=== PATIENT | female | born 1995 | race Caucasian/White ===

== ENCOUNTER 2019-08-29 21:38 | Emergency (ER) | payer MEDICARE, MEDICAID ==
[2019-08-29] MEDS ORDERED: Albuterol/Ipratropium 3.0-0.5 MG/3 ML Neb Soln NEB ONE (22:38)
[2019-08-29] MEDS ORDERED: methylPREDNISolone Sodium Succinate 125 MG/2 ML SDV IM ONE (22:38)
--- NOTE | 2019-08-29 22:43 | EDM.PDOC ---
ED HPI GENERAL MEDICAL PROBLEM - General Stated Complaint: CHEST PAIN Time Seen by Provider: 08/29/19 22:30 Source of Information: Reports: Patient History Limitations: Reports: No Limitations - History of Present Illness INITIAL COMMENTS - FREE TEXT/NARRATIVE: Patient is a 24 YO [facility]F [facility] who presented to the ED because of increasing cough,dyspnea and pleuritic hest pain. she is currently being treated for asthma exacerbation with oral steroids,nebs,and antibiotics. there is no associated fever or chills. mid cheat and mid back Pain Score (Numeric/FACES): 5 - Related Data Allergies Allergy/AdvReac Type Severity Reaction Status Date / Time Penicillins Allergy Hives Verified 06/02/16 22:16 Home Meds: Home Meds Albuterol [Ventolin HFA] 2 puff QID PRN 06/03/16 [History] Azelastine [Astelin Nasal Soln] 1 inhalation ANA BID 06/03/16 [History] Citalopram Hydrobromide [Celexa] 20 mg PO DAILY 06/03/16 [History] Fluticasone/Salmeterol [Advair Diskus 500-50] 1 puff BID 06/03/16 [History] Montelukast [Singulair] 10 mg PO DAILY 06/03/16 [History] busPIRone [Buspar] 5 mg BID 06/03/16 [History] l-Norgest/E.estradion-E.estrad [Daysee 0.15-0.03-0.01 mg Tab] 1 each PO ASDIRECTED 06/03/16 [History] Past Medical History Cardiovascular History: Reports: Other (See Below) Other Cardiovascular History: PFO Respiratory History: Reports: Asthma, Bronchitis, Recurrent Psychiatric History: Reports: Anxiety Endocrine/Metabolic History: Reports: Obesity/BMI 30+ - Infectious Disease History Infectious Disease History: Reports: Chicken Pox - Past Surgical History HEENT Surgical History: Reports: Myringotomy w Tube(s), Tonsillectomy ED ROS GENERAL - Review of Systems Review Of Systems: See Below Constitutional: Reports: No Symptoms HEENT: Reports: No Symptoms Respiratory: Reports: Shortness of Breath, Wheezing, Pleuritic Chest Pain Cardiovascular: Reports: No Symptoms, Chest Pain Endocrine: Reports: No Symptoms GI/Abdominal: Reports: No Symptoms : Reports: No Symptoms Musculoskeletal: Reports: No Symptoms Skin: Reports: No Symptoms Neurological: Reports: No Symptoms Psychiatric: Reports: No Symptoms ED EXAM, GENERAL - Physical Exam Exam: See Below Exam Limited By: No Limitations General Appearance: Alert, No Apparent Distress Eye Exam: Bilateral Eye: PERRL Ears: Normal External Exam, Normal Canal, Hearing Grossly Normal Nose: Normal Inspection, Normal Mucosa, No Blood Throat/Mouth: Normal Inspection, Normal Lips, Normal Teeth Head: Atraumatic, Normocephalic Neck: Normal Inspection, Supple, Non-Tender Respiratory/Chest: No Respiratory Distress, Lungs Clear, Wheezing, Stridor. No : Crackles, Rales Cardiovascular: Normal Peripheral Pulses, Regular Rate, Rhythm, No Edema, No Gallop, No JVD GI/Abdominal: Normal Bowel Sounds, Soft, Non-Tender, No Organomegaly, No Distention, No Abnormal Bruit, No Mass Extremities: Normal Inspection, Normal Range of Motion, Non-Tender, No Pedal Edema, Normal Capillary Refill Neurological: Alert, Oriented, CN II-XII Intact, Normal Cognition, Normal Gait, Normal Reflexes, No Motor/Sensory Deficits Course - Vital Signs Text/Narrative:: duoneb x1 solumedrol 125 mg IM x1 Last Recorded V/S: Last Vital Signs Temp 36.8 C 08/29/19 22:25 Pulse 97 08/29/19 23:00 Resp 17 08/29/19 23:00 BP 151/78 H 08/29/19 23:00 Pulse Ox 99 08/29/19 23:00 - Orders/Labs/Meds Orders: Active Orders 24 hr Category Date Time Status RT Aerosol Therapy [RC] ASDIRECTED Care 08/29/19 22:39 Active Meds: Medications Discontinued Medications Generic Name Dose Route Start Last Admin Trade Name Freq PRN Reason Stop Dose Admin Albuterol/Ipratropium 3 ml 08/29/19 22:38 08/29/19 22:52 Duoneb 3.0-0.5 Mg/3 Ml NEB 08/29/19 22:39 3 ml ONETIME ONE Administration Methylprednisolone Sodium Succinate 125 mg 08/29/19 22:38 08/29/19 22:51 Solu-Medrol IM 08/29/19 22:39 125 mg ONETIME ONE Administration Departure - Departure Time of Disposition: 22:45 Disposition: Home, Self-Care 01 Condition: Good (asthma exacer) Clinical Impression: Asthma exacerbation - Discharge Information *PRESCRIPTION DRUG MONITORING PROGRAM REVIEWED*: No *COPY OF PRESCRIPTION DRUG MONITORING REPORT IN PATIENT SEBAS: No Instructions: Asthma Attack Referrals: PCP,None [Primary Care Provider] - Forms: ED Department Discharge Additional Instructions: increase oral fluids continue your steroids,and antibiotics duoneb every 6 hours when awake for 3 days then give it as needed every 4-6 hours after the 3rd day follow up as needed - My Orders Last 24 Hours: My Active Orders 08/29/19 22:39 RT Aerosol Therapy [RC] ASDIRECTED - Assessment/Plan Last 24 Hours: My Active Orders 08/29/19 22:39 RT Aerosol Therapy [RC] ASDIRECTED
[2019-08-30 04:13] VITALS: BP 151/78; PULSE 97
== END 2019-08-29 23:05 | disposition home or self-care (01) ==
LOC: FB.ED 21:38
DX: J45.901 Unspecified asthma with (acute) exacerbation (principal); F41.9 Anxiety disorder, unspecified; E66.9 Obesity, unspecified; Z68.34 Body mass index [BMI] 34.0-34.9, adult; Z88.0 Allergy status to penicillin; Z79.51 Long term (current) use of inhaled steroids
CPT/HCPCS: 94640; 96372; 99284; J2930; J7620-GY

== ENCOUNTER 2020-06-19 16:42 | Emergency (ER) | payer MEDICARE, MEDICAID ==
[2020-06-19 17:03] VITALS: BP 127/69; PULSE 87
[2020-06-19] MEDS ORDERED: Sodium Chloride 0.9% 500 ML IV ONE (17:23)
[2020-06-19] MEDS ORDERED: Sodium Chloride 0.9% 10 ML Syringe FLUSH PRN (17:23)
--- NOTE | 2020-06-19 17:28 | EDM.PDOC ---
ED HPI GENERAL MEDICAL PROBLEM - General Chief Complaint: Abdominal Pain Stated Complaint: ABD PAIN Time Seen by Provider: 06/19/20 17:25 Source of Information: Reports: Patient, Other (Caregiver) History Limitations: Reports: No Limitations - History of Present Illness INITIAL COMMENTS - FREE TEXT/NARRATIVE: Developed RLQ abdominal pain yesterday, pain worsened today. Denies N/V/D. No prior abdominal surgeries. Denies h/o kidney stones. PMHx includes Asthma and developmental delay. Patient resides at a shelter. Onset Date: 06/18/20 Location: Reports: Abdomen Quality: Reports: Ache Severity: Moderate Right Abdomen Pain Score (Numeric/FACES): 10 - Related Data Allergies Allergy/AdvReac Type Severity Reaction Status Date / Time Penicillins Allergy Hives Verified 06/02/16 22:16 Home Meds: Home Meds Albuterol [Ventolin HFA] 2 puff QID PRN 06/03/16 [History] Azelastine [Astelin Nasal Soln] 1 inhalation ANA BID 06/03/16 [History] Citalopram Hydrobromide [Celexa] 20 mg PO DAILY 06/03/16 [History] Fluticasone/Salmeterol [Advair Diskus 500-50] 1 puff BID 06/03/16 [History] Montelukast [Singulair] 10 mg PO DAILY 06/03/16 [History] busPIRone [Buspar] 5 mg BID 06/03/16 [History] l-Norgest/E.estradion-E.estrad [Daysee 0.15-0.03-0.01 mg Tab] 1 each PO ASDIRECTED 06/03/16 [History] Past Medical History Cardiovascular History: Reports: Other (See Below) Other Cardiovascular History: PFO Respiratory History: Reports: Asthma, Bronchitis, Recurrent Psychiatric History: Reports: Anxiety Endocrine/Metabolic History: Reports: Obesity/BMI 30+ - Infectious Disease History Infectious Disease History: Reports: Chicken Pox - Past Surgical History HEENT Surgical History: Reports: Myringotomy w Tube(s), Tonsillectomy ED ROS GENERAL - Review of Systems Review Of Systems: Comprehensive ROS is negative, except as noted in HPI. ED EXAM, GI/ABD - Physical Exam Exam: See Below Exam Limited By: No Limitations General Appearance: Alert, WD/WN, No Apparent Distress Nose: Normal Inspection Throat/Mouth: No Airway Compromise Head: Atraumatic, Normocephalic Neck: Full Range of Motion Respiratory/Chest: No Respiratory Distress, Lungs Clear, Normal Breath Sounds Cardiovascular: Regular Rate, Rhythm, No Murmur GI/Abdominal Exam: Normal Bowel Sounds, Soft, No Distention, Tender (RLQ). No: Guarding Back Exam: CVA Tenderness (R) Extremities: Normal Range of Motion Neurological: Alert, Normal Cognition Psychiatric: Normal Affect, Normal Mood Skin Exam: Warm, Dry, Intact Course - Vital Signs Last Recorded V/S: Last Vital Signs Temp 36.9 C 06/19/20 17:01 Pulse 87 06/19/20 17:01 Resp 16 06/19/20 17:01 BP 127/69 06/19/20 17:01 Pulse Ox 99 06/19/20 17:01 - Orders/Labs/Meds Orders: Active Orders 24 hr Category Date Time Status Abdomen Pelvis w Cont [CT] Stat Exams 06/19/20 17:55 Taken Sodium Chloride 0.9% [Saline Flush] Med 06/19/20 17:23 Active 10 ml FLUSH ASDIRECTED PRN Saline Lock Insert [OM.PC] Routine Oth 06/19/20 17:23 Ordered Medication Orders Sodium Chloride (Saline Flush) 10 ml FLUSH ASDIRECTED PRN PRN Reason: Keep Vein Open Last Admin: 06/19/20 17:43 Dose: 10 ml Documented by: DARINEL Labs: Laboratory Tests 06/19/20 06/19/20 06/19/20 Range/Units 17:10 17:10 17:30 WBC 8.7 (4.5-12.0) X10-3/uL RBC 4.99 (3.23-5.20) x10(6)uL Hgb 16.4 H (11.5-15.5) g/dL Hct 49.3 (30.0-51.3) % MCV 98.7 H (80-96) fL MCH 32.8 (27.7-33.6) pg MCHC 33.3 (32.2-35.4) g/dL RDW 12.2 (11.5-15.5) % Plt Count 283 (125-369) X10(3)uL MPV 8.4 (7.4-10.4) fL Neut % (Auto) 63.2 (46-82) % Lymph % (Auto) 26.4 (13-37) % Prentiss % (Auto) 7.3 (4-12) % Eos % (Auto) 1 (1.0-5.0) % Baso % (Auto) 2 (0-2) % Neut # (Auto) 5.5 (1.6-8.3) # Lymph # (Auto) 2.3 (0.6-5.0) # Prentiss # (Auto) 0.6 (0.0-1.3) # Eos # (Auto) 0.1 (0.0-0.8) # Baso # (Auto) 0.2 (0.0-0.2) # Sodium (135-145) mmol/L Potassium (3.5-5.3) mmol/L Chloride (100-110) mmol/L Carbon Dioxide (21-32) mmol/L BUN (7-18) mg/dL Creatinine (0.55-1.02) mg/dL Est Cr Clr Drug Dosing Estimated GFR (MDRD) (>60) BUN/Creatinine Ratio (9-20) Glucose (80-116) mg/dL Calcium (8.6-10.2) mg/dL Total Bilirubin (0.1-1.3) mg/dL AST (5-25) IU/L ALT (12-36) U/L Alkaline Phosphatase (56-112) IU/L Total Protein (6.0-8.0) g/dL Albumin (3.5-5.2) g/dL Globulin g/dL Albumin/Globulin Ratio Lipase (73-393) U/L Urine Color Yellow (YELLOW) Urine Appearance Clear (CLEAR) Urine pH 7.0 H (5.0-6.5) Ur Specific Meridian 1.005 L (1.010-1.025) Urine Protein Negative (NEGATIVE) mg/dL Urine Glucose (UA) Normal (NORMAL) mg/dL Urine Ketones Negative (NEGATIVE) mg/dL Urine Occult Blood Negative (NEGATIVE) Urine Nitrite Negative (NEGATIVE) Urine Bilirubin Negative (NEGATIVE) Urine Urobilinogen Normal (NEGATIVE) mg/dL Ur Leukocyte Esterase Negative (NEGATIVE) Urine RBC 0-5 (0-5) Urine WBC 0-5 (0-5) Ur Squamous Epith Cells Occasional (NS,R,O) Urine Bacteria Rare H (NS) Urine HCG, Qual Negative (NEGATIVE) 06/19/20 06/19/20 Range/Units 17:30 17:30 WBC (4.5-12.0) X10-3/uL RBC (3.23-5.20) x10(6)uL Hgb (11.5-15.5) g/dL Hct (30.0-51.3) % MCV (80-96) fL MCH (27.7-33.6) pg MCHC (32.2-35.4) g/dL RDW (11.5-15.5) % Plt Count (125-369) X10(3)uL MPV (7.4-10.4) fL Neut % (Auto) (46-82) % Lymph % (Auto) (13-37) % Prentiss % (Auto) (4-12) % Eos % (Auto) (1.0-5.0) % Baso % (Auto) (0-2) % Neut # (Auto) (1.6-8.3) # Lymph # (Auto) (0.6-5.0) # Prentiss # (Auto) (0.0-1.3) # Eos # (Auto) (0.0-0.8) # Baso # (Auto) (0.0-0.2) # Sodium 139 (135-145) mmol/L Potassium 3.4 L (3.5-5.3) mmol/L Chloride 104 (100-110) mmol/L Carbon Dioxide 23 (21-32) mmol/L BUN 16 (7-18) mg/dL Creatinine 0.7 (0.55-1.02) mg/dL Est Cr Clr Drug Dosing TNP Estimated GFR (MDRD) > 60 (>60) BUN/Creatinine Ratio 22.9 H (9-20) Glucose 92 (80-116) mg/dL Calcium 8.9 (8.6-10.2) mg/dL Total Bilirubin 0.8 (0.1-1.3) mg/dL AST 25 (5-25) IU/L ALT 45 H (12-36) U/L Alkaline Phosphatase 96 (56-112) IU/L Total Protein 7.2 (6.0-8.0) g/dL Albumin 3.4 L (3.5-5.2) g/dL Globulin 3.8 g/dL Albumin/Globulin Ratio 0.9 Lipase 140 (73-393) U/L Urine Color (YELLOW) Urine Appearance (CLEAR) Urine pH (5.0-6.5) Ur Specific Meridian (1.010-1.025) Urine Protein (NEGATIVE) mg/dL Urine Glucose (UA) (NORMAL) mg/dL Urine Ketones (NEGATIVE) mg/dL Urine Occult Blood (NEGATIVE) Urine Nitrite (NEGATIVE) Urine Bilirubin (NEGATIVE) Urine Urobilinogen (NEGATIVE) mg/dL Ur Leukocyte Esterase (NEGATIVE) Urine RBC (0-5) Urine WBC (0-5) Ur Squamous Epith Cells (NS,R,O) Urine Bacteria (NS) Urine HCG, Qual (NEGATIVE) Meds: Medications Generic Name Dose Route Start Last Admin Trade Name Frenina PRN Reason Stop Dose Admin Sodium Chloride 10 ml 06/19/20 17:23 06/19/20 17:43 Saline Flush FLUSH 10 ml ASDIRECTED PRN Administration Keep Vein Open Discontinued Medications Generic Name Dose Route Start Last Admin Trade Name Frenina PRN Reason Stop Dose Admin Sodium Chloride 500 mls @ 500 mls/hr 06/19/20 17:23 06/19/20 17:42 Normal Saline IV 06/19/20 18:22 500 mls/hr .BOLUS ONE Administration Iopamidol 100 ml 06/19/20 18:09 06/19/20 18:15 Isovue-370 (76%) IV 06/19/20 18:10 85 ml ONETIME ONE Administration - Radiology Interpretation Free Text/Narrative:: CT Abd/Pelvis w/ IV contrast: Appendix normal. Urinary bladder wall thickened. No hydronephrosis. Moderate colonic stool. No bowel obstruction. (per Dr. Rosa) Departure - Departure Time of Disposition: 18:52 Disposition: Home, Self-Care 01 Condition: Good Clinical Impression: Abdominal pain Qualifiers: Abdominal location: right lower quadrant Qualified Code(s): R10.31 - Right lo wer quadrant pain Constipation Qualifiers: Constipation type: unspecified constipation type Qualified Code(s): K59.00 - Constipation, unspecified - Discharge Information *PRESCRIPTION DRUG MONITORING PROGRAM REVIEWED*: No *COPY OF PRESCRIPTION DRUG MONITORING REPORT IN PATIENT SEBAS: Not Applicable Instructions: Constipation, Adult, Abdominal Pain, Adult Referrals: Eunice Mckeon NP [Primary Care Provider] - 2 Days Forms: ED Department Discharge Additional Instructions: Drink plenty of fluids. Increase fiber intake. Take Tylenol as needed for pain. Give stool softners or laxatives as needed. Follow up with your primary physician in 2-3 days. Return to the ER if symptoms worsen. Sepsis Event Note (ED) - Evaluation Sepsis Screening Result: No Definite Risk - Focused Exam Vital Signs: Vital Signs Temp Pulse Resp BP Pulse Ox 06/19/20 17:01 36.9 C 87 16 127/69 99 - My Orders Last 24 Hours: My Active Orders 06/19/20 17:23 Sodium Chloride 0.9% [Saline Flush] 10 ml FLUSH ASDIRECTED PRN Saline Lock Insert [OM.PC] Routine 06/19/20 17:55 Abdomen Pelvis w Cont [CT] Stat - Assessment/Plan Last 24 Hours: My Active Orders 06/19/20 17:23 Sodium Chloride 0.9% [Saline Flush] 10 ml FLUSH ASDIRECTED PRN Saline Lock Insert [OM.PC] Routine 06/19/20 17:55 Abdomen Pelvis w Cont [CT] Stat
[2020-06-19] MEDS ORDERED: Iopamidol 755 Mg/ML 100 ML Bottle IV ONE (18:09)
--- NOTE | 2020-06-19 19:00 | CT ---
INDICATION: Right lower quadrant abdominal pain. CT ABDOMEN AND PELVIS WITH CONTRAST: Spiral 2.5 mm axial sections were obtained through the abdomen and pelvis with 85 mL Isovue-370 at 2 cc/second, 100 second delay with sagittal and coronal reconstructions 06/19/20 and compared with 06/03/16. Total exam DLP was 968.68 mGy-cm. The lower lung rebollar and pleural spaces visualized appeared normal. No gallstones were demonstrated. The liver had a normal appearance. The spleen had a normal appearance. The pancreas had a normal appearance. The adrenal glands and kidneys had a normal appearance. CT urogram was obtained on the single set of images and showed normal pyelocaliceal systems with no evidence of obstructive uropathy. The appendix was visualized on coronal images 67 through 73 and appeared normal in the pelvis. No evidence of appendicitis was seen. Bilateral ureteral jets were noted in the urinary bladder. There is suggestion of thickening of the wall of the urinary bladder, which may be on the basis of cystitis and should be correlated clinically. No additional organomegaly, mass lesions or free fluid collections were identified in the abdomen or pelvis. No evidence of free air or bowel obstruction was seen. No retroperitoneal mass was identified No evidence of herniation is identified. Evidence of exogenous obesity is noted. IMPRESSION: 1. Fairly marked thickening of the wall of the urinary bladder may be on the basis of cystitis. 2. Normal appearing appendix. 3. CT of the abdomen and pelvis otherwise unremarkable with IV contrast. Report was called to Dr. Morris at 1842 hours. [facility]
== END 2020-06-19 19:01 | disposition home or self-care (01) ==
LOC: FB.ED 16:42
DX: K59.00 Constipation, unspecified (principal); J45.909 Unspecified asthma, uncomplicated; E66.9 Obesity, unspecified; Z88.0 Allergy status to penicillin; Z79.899 Other long term (current) drug therapy
CPT/HCPCS: 36415; 74177; 80053; 81001; 81025; 83690; 85025; 99284-25; J7040; Q9967

== ENCOUNTER 2021-08-16 20:08 | Emergency (ER) | payer MEDICARE, MEDICAID ==
[2021-08-16] MEDS ORDERED: methylPREDNISolone Sodium Succinate 125 MG/2 ML SDV IM STA (20:26)
--- NOTE | 2021-08-16 20:29 | EDM.PDOC ---
ED HPI GENERAL MEDICAL PROBLEM - General Stated Complaint: RASH ON UPPER PART OF BODY Time Seen by Provider: 08/16/21 20:15 Source of Information: Reports: Patient History Limitations: Reports: No Limitations - History of Present Illness INITIAL COMMENTS - FREE TEXT/NARRATIVE: Patient present to the ED because of hives which started on her trunk yesterday and now it's all over her abdomen and chest. Denies any dyspnea or wheezing. She has a history of asthma and allergy to pollens. She took benadryl 50 mg with mild relief of her itching. - Related Data Allergies Allergy/AdvReac Type Severity Reaction Status Date / Time Penicillins Allergy Hives Verified 08/16/21 20:35 Home Meds: Home Meds Albuterol [Ventolin HFA] 2 puff QID PRN 06/03/16 [History] Azelastine [Astelin Nasal Soln] 1 inhalation ANA BID 06/03/16 [History] Fluticasone/Salmeterol [Advair Diskus 500-50] 1 puff BID 06/03/16 [History] Montelukast [Singulair] 10 mg PO DAILY 06/03/16 [History] Act Fluoride Rinse 30 ml PO BID 08/16/21 [History] Albuterol/Ipratropium [DuoNeb 3.0-0.5 MG/3 ML] 1 applic INH Q4H PRN 08/16/21 [History] Ammonium Lactate [Lac-Hydrin 12% Crm] 1 applic TOP BID 08/16/21 [History] Azelastine HCl 2 spray NS BID 08/16/21 [History] Calcium Carbonate/Vitamin D3 [Calcium 500 mg-Vit D3 600 Unit] 1 tab PO BID 08/16/21 [History] Calcium Polycarbophil [Fiber-Caps] 625 mg PO DAILY 08/16/21 [History] Cetirizine [ZyrTEC] 10 mg PO DAILY 08/16/21 [History] Cyanocobalamin (Vitamin B12) [Vitamin B12] 1,000 mcg PO DAILY 08/16/21 [History] Docusate Sodium 2 tab PO DAILY 08/16/21 [History] Famotidine 20 mg PO BID 08/16/21 [History] Fluticasone Furoate [Flonase Sensimist] 2 spray NS BEDTIME 08/16/21 [History] Ibuprofen 600 mg PO DAILY PRN 08/16/21 [History] Levothyroxine Sodium [Levothyroxine] 112 mcg PO DAILY 08/16/21 [History] Lutein/Minerals/Vit A,C & E [Ocuvite] 1 tab PO DAILY 08/16/21 [History] Mirena 1 applic .XX ASDIRECTED 08/16/21 [History] Omeprazole 20 mg PO DAILY 08/16/21 [History] PARoxetine [Paxil] 10 mg PO BEDTIME 08/16/21 [History] PARoxetine [Paxil] 40 mg PO BEDTIME 08/16/21 [History] Saliva Substitute Combo No.9 [Biotene] 15 ml PO BEDTIME 08/16/21 [History] Tiotropium Laona [Spiriva Respimat] 2.5 mcg IH DAILY 08/16/21 [History] diphenhydrAMINE [Benadryl] 25 mg PO BEDTIME 08/16/21 [History] polyethylene glycoL 3350 [MiraLAX] 17 gm PO DAILY 08/16/21 [History] prednisoLONE [Prednisolone] 30 mg PO TID #60 ml 08/16/21 [Rx] Past Medical History Cardiovascular History: Reports: Other (See Below) Other Cardiovascular History: PFO Respiratory History: Reports: Asthma, Bronchitis, Recurrent Psychiatric History: Reports: Anxiety Endocrine/Metabolic History: Reports: Obesity/BMI 30+ - Infectious Disease History Infectious Disease History: Reports: Chicken Pox - Past Surgical History HEENT Surgical History: Reports: Myringotomy w Tube(s), Tonsillectomy ED ROS GENERAL - Review of Systems Review Of Systems: See Below Constitutional: Reports: No Symptoms HEENT: Reports: No Symptoms Respiratory: Reports: No Symptoms Cardiovascular: Reports: No Symptoms Endocrine: Reports: No Symptoms GI/Abdominal: Reports: No Symptoms : Reports: No Symptoms Musculoskeletal: Reports: No Symptoms Skin: Reports: Rash Neurological: Reports: No Symptoms Psychiatric: Reports: No Symptoms Hematologic/Lymphatic: Reports: No Symptoms ED EXAM, SKIN/RASH Exam: See Below Exam Limited By: No Limitations General Appearance: Alert, No Apparent Distress Eye Exam: Bilateral Eye: PERRL Ears: Normal External Exam, Normal Canal Nose: Normal Inspection, Normal Mucosa, No Blood Throat/Mouth: Normal Inspection, Normal Lips, Normal Teeth Head: Atraumatic, Normocephalic Neck: Normal Inspection, Supple, Non-Tender, Full Range of Motion Respiratory/Chest: No Respiratory Distress, Lungs Clear, Normal Breath Sounds, No Accessory Muscle Use, Chest Non-Tender Cardiovascular: Normal Peripheral Pulses, Regular Rate, Rhythm, No Edema, No Gallop, No JVD, No Murmur, No Rub GI/Abdominal: Normal Bowel Sounds, Soft, Non-Tender, No Organomegaly, No Distention, No Abnormal Bruit, No Mass Back Exam: Normal Inspection, Full Range of Motion Extremities: Normal Inspection, Normal Range of Motion, Non-Tender, No Pedal Edema, Normal Capillary Refill Neurological: Alert, Oriented, CN II-XII Intact, Normal Cognition, Normal Reflexes, No Motor/Sensory Deficits Psychiatric: Normal Affect Skin: Other (urticaria) Course - Vital Signs Text/Narrative:: Vistaril 50 mg PO x1 Solumedrol 125 mg IM x1 Last Recorded V/S: Last Vital Signs Temp 37.7 C 08/16/21 21:35 Pulse 101 H 08/16/21 21:35 Resp 20 08/16/21 21:35 BP 155/89 H 08/16/21 21:35 Pulse Ox 100 08/16/21 21:35 - Orders/Labs/Meds Meds: Medications Discontinued Medications Generic Name Dose Route Start Last Admin Trade Name Freq PRN Reason Stop Dose Admin Hydroxyzine Pamoate 50 mg 08/16/21 20:26 08/16/21 20:31 Hydroxyzine Pamoate 50 Mg Cap PO 08/16/21 20:27 50 mg NOW STA Administration Methylprednisolone Sodium Succinate 125 mg 08/16/21 20:26 08/16/21 20:32 Methylprednisolone Sodium Succinate 125 Mg/2 Ml Sdv IM 08/16/21 20:27 125 mg NOW STA Administration Departure - Departure Time of Disposition: 21:00 Disposition: Home, Self-Care 01 Condition: Good Clinical Impression: Urticaria - Discharge Information Prescriptions: prednisoLONE [Prednisolone] 30 mg PO TID #60 ml Instructions: Hivraciel, [id number] Referrals: Eunice Mckeon FIRE COORDINATOR [Primary Care Provider] - Forms: ED Department Discharge Additional Instructions: Please read discharge instructions on hives Benadryl 50 mg every 6 hours as needed for itching and rash Prednisolone 30 mg 3 times daily for 3 days Follow up as needed Sepsis Event Note (ED) - Focused Exam Vital Signs: Vital Signs Temp Pulse Resp BP Pulse Ox 08/16/21 21:35 37.7 C 101 H 20 155/89 H 100 08/16/21 20:10 37.7 C 77 22 H 153/102 H 99
[2021-08-16 22:08] VITALS: BP 155/89; PULSE 101
== END 2021-08-16 21:45 | disposition home or self-care (01) ==
LOC: FB.ED 20:08
DX: L50.9 Urticaria, unspecified (principal); J45.909 Unspecified asthma, uncomplicated; E66.9 Obesity, unspecified; Z88.0 Allergy status to penicillin; Z79.899 Other long term (current) drug therapy; Z68.29 Body mass index [BMI] 29.0-29.9, adult
CPT/HCPCS: 96372; 99283; A9270-GY; J2930

== ENCOUNTER 2022-04-03 04:44 | Emergency (ER) | payer MEDICARE, MEDICAID ==
[2022-04-03 08:53] VITALS: BP 166/112; PULSE 99
== END 2022-04-03 06:40 | disposition home or self-care (01) ==
LOC: FB.ED 04:44
DX: S81.811A Laceration without foreign body, right lower leg, initial encounter (principal); J45.909 Unspecified asthma, uncomplicated; E66.9 Obesity, unspecified; Z68.30 Body mass index [BMI] 30.0-30.9, adult; Z88.0 Allergy status to penicillin; Z79.899 Other long term (current) drug therapy; W55.03XA Scratched by cat, initial encounter
CPT/HCPCS: 12002; 99281; 99283-25

== ENCOUNTER 2023-07-08 13:23 | Emergency (ER) | payer MEDICARE, MEDICAID ==
[2023-07-08] MEDS ORDERED: Lidocaine 2% 20 ML MDV INFILT ONE (13:24)
[2023-07-08] MEDS ORDERED: Ibuprofen 800 MG Tab PO ONE (13:57)
[2023-07-08] MEDS ORDERED: Bacitracin Oint 1 GM U/D Packet TOP ONE (13:57)
[2023-07-08] MEDS ORDERED: ceFAZolin 2 GM Vial IVPUSH ONE (17:21)
[2023-07-08] MEDS ORDERED: Sodium Chloride 0.9% 10 ML Syringe FLUSH PRN (17:21)
[2023-07-08] MEDS ORDERED: Ondansetron 4 MG/2 ML SDV IVPUSH ONE (17:59)
[2023-07-08] MEDS ORDERED: Morphine 4 MG/ML VIAL IVPUSH ONE (17:59)
[2023-07-08 23:02] VITALS: BP 133/85; PULSE 86
== END 2023-07-08 23:00 ==
LOC: FB.ED 13:23
DX: S81.012A Laceration without foreign body, left knee, initial encounter (principal); S60.221A Contusion of right hand, initial encounter; S80.01XA Contusion of right knee, initial encounter; I10 Essential (primary) hypertension; E66.9 Obesity, unspecified; Z68.35 Body mass index [BMI] 35.0-35.9, adult; Z88.0 Allergy status to penicillin; Z79.899 Other long term (current) drug therapy; W18.30XA Fall on same level, unspecified, initial encounter
CPT/HCPCS: 12004; 73130-RT; 73562-50; 73700-LT; 96374; 96375; 99284; 99285-25; A9270-GY; J0690; J2270; J2405